=== PATIENT | female | born 1985 | race Caucasian/White ===

== ENCOUNTER 2017-03-10 13:01 | Emergency (ER) | payer OTHER ==
[~2017-03-10] VITALS: Ht 154.9 cm; Wt 59.0 kg
[2017-03-10 13:07] VITALS: BP 125/93
--- NOTE | 2017-03-10 13:07 | NUR ---
32/F BIBA FOR DOG BITE/SCRATCH TO R THIGH. PT STATES SHE WAS BITTEN BY AN UNKNOWN DOG BUT PT STATES SHE DOES NOT KNOW THE COMMUNITY DEVELOPMENT SPECIALIST BUT KNOWS WHERE THE DOG LIVES. SITE BLEEDING UNDER CONTROL. AAOx4, PERRLA, BREATHING EVEN AND UNLABORED. ERMD NOTIFIED OF PATIENT STATUS.
--- NOTE | 2017-03-10 13:40 | NUR ---
[employer] AT BEDSIDE.
--- NOTE | 2017-03-10 13:58 | NUR ---
Patient discharged with v/s stable. Written and verbal after care instructions given and explained. Patient alert, oriented and verbalized understanding of instructions. Ambulatory with steady gait. All questions addressed prior to discharge. ID band removed. Patient advised to follow up with PMD. Rx of AUGMENTIN 500MG TABLET AND MOTRIN 400MG TABLET given. Patient educated on indication of medication including possible reaction and side effects. Opportunity to ask questions provided and answered.
[2017-03-10 13:59] VITALS: BP 121/82
== END 2017-03-10 13:58 | disposition home or self-care (01) ==
LOC: MED 13:01
DX: S71.151A Open bite, right thigh, initial encounter (principal); W54.0XXA Bitten by dog, initial encounter; Y93.01 Activity, walking, marching and hiking; Y92.488 Other paved roadways as the place of occurrence of the external cause; Y99.8 Other external cause status
CPT/HCPCS: 99283

== ENCOUNTER 2017-03-13 15:41 | Emergency (ER) | payer OTHER ==
[~2017-03-13] VITALS: Ht 154.9 cm; Wt 59.0 kg
[2017-03-13 16:13] VITALS: BP 126/62
--- NOTE | 2017-03-13 16:20 | NUR ---
PATIENT PRESENTS TO ED WITH RECHECK FOR DOG BITE ON 03/10/2017 WITH PAIN 2/10 ON RT UPPER LEG; CURRENT ON TETANUS SHOT HX; DENIES RX; DENIES DENIES N/V/D; SKIN IS PINK/WARM/DRY; AAOX4 WITH EVEN AND STEADY GAIT; LUNGS CLEAR BL; HR EVEN AND REGULAR; PT DENIES ANY FEVER, CP, SOB, OR COUGH AT THIS TIME; PATIENT STATES PAIN OF 2/10 AT THIS TIME; VSS; ER MD MADE AWARE OF PT STATUS.
[2017-03-13 17:23] VITALS: BP 129/67
--- NOTE | 2017-03-13 17:23 | NUR ---
Patient discharged with v/s stable. Written and verbal after care instructions given and explained. Patient verbalized understanding. Ambulatory with steady gait. All questions addressed prior to discharge. Advised to follow up with PMD.
== END 2017-03-13 17:23 | disposition home or self-care (01) ==
LOC: MED 15:41
DX: S71.151D Open bite, right thigh, subsequent encounter (principal); W54.0XXD Bitten by dog, subsequent encounter
CPT/HCPCS: 99281

== ENCOUNTER 2018-07-11 19:19 | Emergency (ER) | payer OTHER ==
[~2018-07-11] VITALS: Ht 154.9 cm; Wt 53.5 kg
[2018-07-11 19:40] VITALS: BP 116/72
--- NOTE | 2018-07-11 19:40 | NUR ---
PATIENT AMBULATED TO ER BED 5.
--- NOTE | 2018-07-11 20:00 | NUR ---
PT C/O "POKING" R SIDED CP X1 DAY 04/08, RADIATING TO R SHOULDER. DENIES N/V/D/FEVER, SOB. PT SKIN WARM AND DRY, VSS. BED IN LOW POSITION, PT SITTING UP IN BED.
--- NOTE | 2018-07-11 20:22 | NUR ---
PT DENIES CP AT THIS TIME.
--- NOTE | 2018-07-11 20:42 | NUR ---
PT PLACED ON ROCKET SCIENTIST,NSR 89 BPM
[2018-07-11 21:18] LABS: BASOPHILS # (AUTO) 0.1 K/uL (0.00-0.22); BASOPHILS % (AUTO) 0.9 % (0.0-2.0); EOSINOPHILS # (AUTO) 0.1 K/uL (0-0.4); EOSINOPHILS % (AUTO) 1.1 % (0.0-4.0); HEMATOCRIT 38.1 % (36-48); HEMOGLOBIN 12.8 g/dL (12.0-16.0); LYMPHOCYTES # (AUTO) 0.9 K/uL (2.5-16.5); LYMPHOCYTES % (AUTO) 11.2 % (20.5-51.1); MEAN CORPUSCULAR HEMOGLOBIN 30 pg (27-31); MEAN CORPUSCULAR HGB CONC 34 g/dL (33-37); MEAN CORPUSCULAR VOLUME 88.9 fL (80-94); MONOCYTES # (AUTO) 0.5 K/uL (0.8-1.0); MONOCYTES % (AUTO) 5.4 % (1.7-9.3); NEUTROPHILS # (AUTO) 6.8 K/uL (1.8-7.7); NEUTROPHILS % (AUTO) 81.4 % (42.2-75.2); PLATELET COUNT (AUTO) 275 K/uL (140-450); RED BLOOD CELL COUNT(AUTO) 4.29 MIL/uL (4.20-5.40); RED CELL DISTRIBUTION WIDTH 13.6 % (11.6-13.7); WHITE BLOOD COUNT (AUTO) 8.3 K/uL (4.8-10.8)
--- NOTE | 2018-07-11 21:30 | NUR ---
RECIEVED REPORT FROM LANCE TORRES VSS
[2018-07-11 21:31] LABS: ALBUMIN 3.7 g/dL (3.4-5.0); ANION GAP 12.2 (8-16); CARBON DIOXIDE 26.7 mmol/L (21-32); CREATININE 0.6 mg/dL (0.6-1.3); POTASSIUM 3.9 mmol/L (3.5-5.1); TOTAL BILIRUBIN 0.3 mg/dL (0.0-1.0)
--- NOTE | 2018-07-11 21:35 | NUR ---
PT STATED SHE DOES NOT HAVE ANY PAIN AT THIS TIME. PT FEELS SHE HAS STRESS DUE TO FAMILY ISSUES. PT HAD SHOULDER PAIN AND IT RADIATED TO THE NECK. PT STATED SHE ALSO HAS A HEADACHE AT THIS TIME. PT DENIES TRAUMA OR INJURY TO RIGHT SHOULDER. ER MD MADE AWARE. PAIN LEVEL IS 0/10 AT THIS TIME.
[2018-07-11 22:15] VITALS: BP 116/72
== END 2018-07-11 22:15 | disposition home or self-care (01) ==
LOC: MED 19:19
DX: R07.89 Other chest pain (principal)
CPT/HCPCS: 36415; 71045; 80053; 81002; 81025; 85025; 93005; 99284

== ENCOUNTER 2021-02-13 11:54 | Emergency (ER) | payer MEDICAID, SELFPAY ==
[~2021-02-13] VITALS: Ht 154.9 cm; Wt 70.3 kg
[2021-02-13 11:58] VITALS: BP 126/95
--- NOTE | 2021-02-13 12:03 | NUR ---
PT AMBULATED TO BED
--- NOTE | 2021-02-13 12:05 | NUR ---
35 Y/O FEMALE C/O BREAST PAIN SINCE YESTERDAY. PT STATES SHE HAS NOT BREAST FED SINCE YESTERDAY AND HAS BEEN EXPERIENCING 4/10, ACHING/DISCOMFORT/CONSTANT, NON-RADIATING PAIN. PATIENT STATES BILATERAL BREAST PAIN RIGHT SIDE GREATER PAIN THAN LEFT. PATIENT REPORTS ATTEMPTING TO EXPRESS MILK FROM BREAST WITHOUT RELIEF TO SYMPTOMS. DENIES MEDICATIONS PRIOR TO ARRIVAL. DENIES NAUSEA, VOMITING, DIARRHEA, DYSURIA, ABDOMINAL PAIN, FEVER, CHILLS. SEE QUALITY CONTROL TECH [employer]SESSMENT NOTES FOR DETAILS. LMP 01/11/21. MEDHX: DENIES NKA SX:
--- NOTE | 2021-02-13 12:20 | NUR ---
ALFREDA Pinot is evaluating patient at bedside
--- NOTE | 2021-02-13 12:25 | NUR ---
L&D contacted for any additional resources regarding pumps. RN states will recontact in 10 minutes due to nursery RN occupied with patient.
[2021-02-13] MEDS ORDERED: ACETAMINOPHEN 325 MG TAB PO SCH (12:30)
--- NOTE | 2021-02-13 12:30 | NUR ---
L&D with recontact stating ~30 minutes
[2021-02-13] MEDS ORDERED: ACETAMINOPHEN 325 MG TAB ONE (12:32)
--- NOTE | 2021-02-13 12:35 | NUR ---
Heated blankets provided; pt encouraged to massage for comfort measures.
[2021-02-13] MEDS ORDERED: ACET-10509 PO (13:30)
--- NOTE | 2021-02-13 13:45 | NUR ---
Nursery RN with automtaic breast pump. Patient utilizing pump at this time. All pt needs met.
--- NOTE | 2021-02-13 14:00 | NUR ---
Pt reports + relief to pain "I feel so much better now." 0. All needs met.
[2021-02-13 14:02] VITALS: BP 117/83
== END 2021-02-13 14:07 | disposition home or self-care (01) ==
LOC: MED 11:54
DX: N64.4 Mastodynia (principal); Z79.899 Other long term (current) drug therapy
CPT/HCPCS: 99282